=== PATIENT | male | born 1995 | race Caucasian/White ===

== ENCOUNTER 2017-12-20 12:44 | Emergency (ER) | payer MEDICAID ==
[~2017-12-20] VITALS: Ht 180.3 cm; Wt 74.8 kg
[2017-12-20 13:14] VITALS: BP_SYST 142
--- NOTE | 2017-12-20 13:27 | NUR ---
Ambulatory to hallway bed 1
--- NOTE | 2017-12-20 13:40 | NUR ---
PT c/o "tonsilitis" x2 days, sharp stabbing pain. Difficulty to eat or swallow. Took ibuprofen 400mg at 11am today.
--- NOTE | 2017-12-20 13:42 | NUR ---
Sami KING at bedside for evaluation
[2017-12-20] MEDS ORDERED: PENICILLIN G BENZATHINE 1.2 MMU/2 ML SYR IM ONE (14:00)
[2017-12-20] MEDS ORDERED: DEXAMETHASONE SOD PHOSPHATE 10 MG/ML VIAL IM ONE (14:00)
--- NOTE | 2017-12-20 14:06 | NUR ---
Medicated per MD orders.
[2017-12-20 15:00] VITALS: BP_SYST 139
--- NOTE | 2017-12-20 15:00 | NUR ---
Patient given written and verbal discharge instructions and verbalizes understanding. ER MD discussed with patient the results and treatment provided. Patient in stable condition. ID arm band removed. Rx of ibuprofen, keflex given. Patient educated on pain management and to follow up with PMD. Pain Scale 3/10. Opportunity for questions provided and answered.
== END 2017-12-20 15:00 | disposition home or self-care (01) ==
LOC: SED 12:44
DX: J02.9 Acute pharyngitis, unspecified (principal); J45.909 Unspecified asthma, uncomplicated; F17.200 Nicotine dependence, unspecified, uncomplicated
CPT/HCPCS: 96372; 99284; J0561; J1100

== ENCOUNTER 2019-07-24 10:03 | Emergency (ER) | payer SELFPAY ==
[~2019-07-24] VITALS: Ht 180.3 cm; Wt 83.9 kg
--- NOTE | 2019-07-24 10:08 | NUR ---
Pt placed in bed 3
[2019-07-24 10:11] VITALS: BP_SYST 147
--- NOTE | 2019-07-24 10:13 | NUR ---
Patient is awake, alert, and oriented x4. Patient reports cold like symptoms since Sunday and has called off of work since Sunday. His employer said he needed to see the doctor, patient reports that he has no regular physician and decided to come to the ER. Patient reports nausea, vomiting, and abdominal pain.
--- NOTE | 2019-07-24 10:19 | NUR ---
VERONICA Sal at bedside examining patient.
[2019-07-24] MEDS: ONDANSETRON 4 MG ODT TAB PO ONE (10:30)
[2019-07-24] MEDS: KETOROLAC TROMETHAMINE 30 MG VIAL IM ONE (10:30)
--- NOTE | 2019-07-24 10:37 | NUR ---
Patient given written and verbal discharge instructions and verbalizes understanding. ER MD discussed with patient the results and treatment provided. Patient in stable condition. ID arm band removed. Rx of naproxen, zofran given. Patient educated on pain management and to follow up with PMD. Pain Scale 0/10. Opportunity for questions provided and answered. Medication side effect fact sheet provided.
== END 2019-07-24 10:37 | disposition home or self-care (01) ==
LOC: SED 10:03
DX: K52.9 Noninfective gastroenteritis and colitis, unspecified (principal); J02.8 Acute pharyngitis due to other specified organisms; B96.89 Other specified bacterial agents as the cause of diseases classified elsewhere; J45.909 Unspecified asthma, uncomplicated
CPT/HCPCS: 96372; 99283; J1885; Q0162

== ENCOUNTER 2021-04-05 07:40 | Emergency (ER) | payer MEDICAID ==
[~2021-04-05] VITALS: Ht 182.9 cm; Wt 83.9 kg
--- NOTE | 2021-04-05 07:45 | NUR ---
Placed in room 5 . Placed on monitoring and evaluation advisor, blood pressure machine and pulse oximeter. To gown for exam. Side rails up.
--- NOTE | 2021-04-05 07:50 | NUR ---
Pt bib cousin to ER with c/o weakness and bilat arm stiffness approx 30 min ago. Reports smoking pot when symptoms started. Denies any pain, fever or sob. V/S stable, no acute distress noted.
[2021-04-05 07:51] VITALS: BP_SYST 148
--- NOTE | 2021-04-05 07:56 | NUR ---
ER Dr. Levy at bedside examining patient.
[2021-04-05] MEDS ORDERED: LORazepam 1 MG TABLET PO ONE (08:00)
[2021-04-05] MEDS ORDERED: LORA-259 PO (08:16)
--- NOTE | 2021-04-05 08:25 | NUR ---
Patient given written and verbal discharge instructions and verbalizes understanding. ER MD discussed with patient the results and treatment provided. Patient in stable condition. ID arm band removed. Rx of Ativan given. Patient educated on pain management and to follow up with PMD. Pain Scale 0. Opportunity for questions provided and answered. Medication side effect fact sheet provided.
[2021-04-05 08:26] VITALS: BP_SYST 148
== END 2021-04-05 08:25 | disposition home or self-care (01) ==
LOC: SED 07:40
DX: R06.4 Hyperventilation (principal); R29.0 Tetany; J45.909 Unspecified asthma, uncomplicated; Z79.899 Other long term (current) drug therapy
CPT/HCPCS: 99283